=== PATIENT | female | born 1955 | race Native Hawaiian/Other Pacific Islander ===

== ENCOUNTER 2020-05-18 14:39 | Outpatient (CLI) | payer OTHER, BC | END 2020-05-18 19:31 | disposition home or self-care (01) | LOC: RAD 14:39 | PROVIDERS: ATTEND Orthopaedic Surgery | DX: M25.561 Pain in right knee (principal) ==

== ENCOUNTER 2020-07-06 09:49 | Outpatient (CLI) | payer OTHER, BC | END 2020-07-06 20:46 | disposition home or self-care (01) | LOC: RAD 09:49 | PROVIDERS: ATTEND Nurse Practitioner Family | DX: M79.645 Pain in left finger(s) (principal) ==

== ENCOUNTER 2021-10-15 07:58 | Outpatient (CLI) | payer OTHER, BC ==
[2021-10-15 08:51] LABS: PLATELET COUNT 276 K/uL (152-353)
[2021-10-15 09:23] LABS: POTASSIUM 4.1 mmol/L (3.6-5.2)
== END 2021-10-15 21:14 | disposition home or self-care (01) ==
LOC: LABW 07:58
PROVIDERS: ATTEND Nurse Practitioner
DX: E34.8 Other specified endocrine disorders (principal); N95.1 Menopausal and female climacteric states; E23.6 Other disorders of pituitary gland; R41.3 Other amnesia; R68.82 Decreased libido; E03.8 Other specified hypothyroidism; E55.9 Vitamin D deficiency, unspecified; D51.8 Other vitamin B12 deficiency anemias; E61.2 Magnesium deficiency; F41.8 Other specified anxiety disorders; G47.00 Insomnia, unspecified; D64.89 Other specified anemias; E78.49 Other hyperlipidemia; R73.03 Prediabetes; R53.83 Other fatigue
CPT/HCPCS: 36415; 80053; 80061; 82306; 82607; 82670; 82728; 83001; 83036; 83540; 83550; 83735; 84403; 84443; 84481; 85027